=== PATIENT | female | born 1960 | race Caucasian/White ===

== ENCOUNTER 2020-04-28 11:17 | Emergency (ER) | payer SELFPAY ==
[2020-04-28 11:32] VITALS: O2SAT 100
[2020-04-28] MEDS ORDERED: Hydromorphone 1 mg/ml Injection IV ONE (12:03)
[2020-04-28] MEDS ORDERED: Sodium Chloride 0.9% 1000 ML 1,000 ML IV STA (12:03)
[2020-04-28] MEDS ORDERED: Zofran 4 MG/2 ML VIAL IV ONE (12:03)
--- NOTE | 2020-04-28 12:11 | ERPHSYRPT ---
- History of Present Illness Time Seen by Provider: 04/28/20 11:50 Historian: patient Exam Limitations: no limitations Patient Subjective Stated Complaint: PT states "It started yesterday, it was just under the breastbone and i felt like a hunger pain, now it is my whole a bdomen and around to my back." Triage Nursing Assessment: Pt presented alert and oriented X 3, skin pwd Pt ambulates with an upright steady gait, able to speak in clear full sentences. PT in no apparent respiratory distress. Physician History: This is a 60-year-old white female who has had no prior abdominal surgeries and presents with 2-day history of abdominal pain and associated nausea vomiting. The pain began yesterday evening in the epigastric area. Since then it has now localized in the periumbilical region, left side with radiation around to her left flank. She ate [employer] yesterday for lunch and has not eaten since that time. She had some nausea and vomiting this morning. The pain level is approximately 8 out of 10 and it is sharp and stabbing. Timing/Duration: yesterday Activities at Onset: none Quality: sharpness, stabbing Abdominal Pain Onset Location: epigastric, periumbilical Pain Radiation: periumbilical, back (Around to the back on the left side) Severity of Pain-Max: moderate Severity of Pain-Current: moderate Modifying Factors: Improves With: vomiting Associated Symptoms: nausea, vomiting Previous symptoms: no prior history Allergies/Adverse Reactions: Penicillins Allergy (Intermediate, Verified 04/28/20 11:32) Rash Hx Tetanus, Diphtheria Vaccination/Date Given: No Hx Influenza Vaccination/Date Given: No Hx Pneumococcal Vaccination/Date Given: No Immunizations Up to Date: Yes Travel Risk - International Travel Have you traveled outside of the country in past 3 weeks: No - Coronavirus Screening Are you exhibiting any of the following symptoms?: No Close contact with a COVID-19 positive Pt in past 14-21 Days: No - Review of Systems Constitutional: No Symptoms Eyes: No Symptoms Ears, Nose, & Throat: No Symptoms Respiratory: No Symptoms Cardiac: No Symptoms Abdominal/Gastrointestinal: Abdominal Pain, Nausea, Vomiting Genitourinary Symptoms: No Symptoms Musculoskeletal: No Symptoms Skin: No Symptoms Neurological: No Symptoms Psychological: No Symptoms Endocrine: No Symptoms Hematologic/Lymphatic: No Symptoms Immunological/Allergic: No Symptoms All Other Systems: Reviewed and Negative - Past Medical History Pertinent Past Medical History: No Neurological History: No Pertinent History ENT History: No Pertinent History Cardiac History: No Pertinent History Respiratory History: No Pertinent History Endocrine Medical History: No Pertinent History Musculoskeletal History: No Pertinent History GI Medical History: No Pertinent History History: No Pertinent History Psycho-Social History: No Pertinent History Female Reproductive Disorders: No Pertinent History - Past Surgical History Past Surgical History: Yes Neuro Surgical History: No Pertinent History Cardiac: No Pertinent History Respiratory: No Pertinent History Gastrointestinal: No Pertinent History Genitourinary: No Pertinent History Musculoskeletal: No Pertinent History Other Surgical History: c section X 2. left wrist. right ovary - Social History Smoking Status: Former smoker Exposure to second hand smoke: No Drug Use: none Patient Lives Alone: No - Female History Hx Now: No - Nursing Vital Signs Nursing Vital Signs: Initial Vital Signs Temperature 98.5 F 04/28/20 11:22 Pulse Rate 95 H 04/28/20 11:22 Respiratory Rate 20 04/28/20 11:22 Blood Pressure 134/72 04/28/20 11:22 O2 Sat by Pulse Oximetry 100 04/28/20 11:22 Pain Scale Pain Intensity 9 - Physical Exam General Appearance: no apparent distress, alert, anxiety Eye Exam: PERRL/EOMI, eyes nml inspection Ears, Nose, Throat Exam: normal ENT inspection, moist mucous membranes Neck Exam: normal inspection, non-tender, supple, full range of motion Respiratory Exam: normal breath sounds, lungs clear, airway intact, No chest tenderness, No respiratory distress Cardiovascular Exam: regular rate/rhythm, normal heart sounds, normal peripheral pulses Gastrointestinal/Abdomen Exam: soft, normal bowel sounds, tenderness, guarding (To the left of periumbilical region), No mass, No pulsatile mass, No rebound Pelvic Exam: not done Rectal Exam: not done Back Exam: normal inspection, normal range of motion, No CVA tenderness, No vertebral tenderness Extremity Exam: normal inspection, normal range of motion, pelvis stable Neurologic Exam: alert, oriented x 3, cooperative, linen attendant II-XII nml as tested, normal mood/affect, nml cerebellar function, nml station & gait, sensation nml Skin Exam: normal color, warm, dry Lymphatic Exam: No adenopathy SpO2 Interpretation: normal SpO2: 100 O2 Delivery: Room Air - Course Nursing assessment & vital signs reviewed: Yes EKG Interpreted by Me: RATE ([id number]), Sinus Rhythm, NORMAL AXIS, NORMAL INTERVALS, NORMAL QRS, NORMAL ST-T, Other (No comparison EKG. There is no evidence of acute ischemic changes.) Ordered Tests: Active Orders 24 hr Category Date Time Status EKG-ER Only STAT Care 04/28/20 12:03 Active IV Insertion STAT Care 04/28/20 12:03 Active ABDOMEN AND PELVIS W/0 CONTRAS [CT] Stat Exams 04/28/20 12:04 Taken AMYLASE Stat Lab 04/28/20 11:45 Completed CBC W DIFF Stat Lab 04/28/20 11:45 Completed CMP Stat Lab 04/28/20 11:45 Completed LIPASE Stat Lab 04/28/20 11:45 Completed Lactic Acid Stat Lab 04/28/20 12:03 Ordered TROPONIN Q3H Lab 04/28/20 11:45 Completed TROPONIN Q3H Lab 04/28/20 15:15 Ordered TROPONIN Q3H Lab 04/28/20 18:15 Ordered TROPONIN Q3H Lab 04/28/20 21:15 Ordered TROPONIN Q3H Lab 04/29/20 00:15 Ordered UA W/RFX UR CULTURE Stat Lab 04/28/20 11:45 Completed Medication Summary Generic Name Dose Route Start Last Admin Trade Name Freq PRN Reason Stop Dose Admin Sodium Chloride 1,000 mls @ 999 mls/hr 04/28/20 12:03 04/28/20 12:22 Sodium Chloride 0.9% 1000 Ml IV 04/28/20 13:03 999 mls/hr .Q1H1M STA Administration Discontinued Medications Generic Name Dose Route Start Last Admin Trade Name Freq PRN Reason Stop Dose Admin Hydromorphone HCl 1 mg 04/28/20 12:03 04/28/20 12:26 Hydromorphone 1 Mg/Ml Injection IV 04/28/20 12:04 1 mg STAT ONE Administration Hydromorphone HCl Confirm 04/28/20 12:19 Hydromorphone 1 Mg/Ml Injection Administered 04/28/20 12:20 Dose 1 mg .ROUTE .STK-MED ONE Sodium Chloride Confirm 04/28/20 12:19 Sodium Chloride 0.9% 1000 Ml Administered 04/28/20 12:20 Dose 1,000 mls @ ud .ROUTE .STK-MED ONE Ondansetron HCl 4 mg 04/28/20 12:03 04/28/20 12:24 Zofran 4 Mg/2 Ml Vial IV 04/28/20 12:04 4 mg STAT ONE Administration Ondansetron HCl Confirm 04/28/20 12:18 Zofran 4 Mg/2 Ml Vial Administered 04/28/20 12:19 Dose 4 mg .ROUTE .STK-MED ONE Lab/Rad Data: Laboratory Result Diagrams 04/28/20 11:45 04/28/20 11:45 Laboratory Results 04/28/20 04/28/20 04/28/20 Range/Units 11:45 11:45 11:45 WBC (4.0-10.5) K/mm3 RBC (4.1-5.4) M/mm3 Hgb (12.0-16.0) gm/dl Hct (35-47) % MCV (78-100) fl MCH (26-32) pg MCHC (32-36) g/dl RDW (11.5-14.0) % Plt Count (150-450) K/mm3 MPV (7.5-11.0) fl Gran % (36.0-66.0) % Eos # (Auto) (0-0.5) Absolute Lymphs (auto) (1.0-4.6) Absolute Monos (auto) (0.0-1.3) Lymphocytes % (24.0-44.0) % Monocytes % (0.0-12.0) % Eosinophils % (0.00-5.0) % Basophils % (0.0-0.4) % Absolute Granulocytes (1.4-6.9) Basophils # (0-0.4) Sodium 139 (137-145) mmol/L Potassium 4.0 (3.5-5.1) mmol/L Chloride 100 (98-107) mmol/L Carbon Dioxide 28 (22-30) mmol/L Anion Gap 14.7 (5-15) MEQ/L BUN 11 (7-17) mg/dL Creatinine 0.58 (0.52-1.04) mg/dL Estimated GFR > 60.0 ML/MIN Glucose 104 (74-106) mg/dL Calcium 9.9 (8.4-10.2) mg/dL Total Bilirubin 0.50 (0.2-1.3) mg/dL AST 33 (14-36) U/L ALT 17 (0-35) U/L Alkaline Phosphatase 72 (38-126) U/L Troponin I < 0.012 (0.000-0.034) ng/mL Serum Total Protein 8.2 (6.3-8.2) g/dL Albumin 4.9 (3.5-5.0) g/dL Amylase 102 (30-110) U/L Lipase 211 (23-300) U/L Urine Color YELLOW (YELLOW) Urine Appearance CLOUDY (CLEAR) Urine pH 7.0 (5-6) Ur Specific [place] 1.018 (1.005-1.025) Urine Protein NEGATIVE (Negative) Urine Ketones TRACE (NEGATIVE) Urine Blood NEGATIVE (0-5) Jeancarlos/ul Urine Nitrite NEGATIVE (NEGATIVE) Urine Bilirubin NEGATIVE (NEGATIVE) Urine Urobilinogen NEGATIVE (0-1) mg/dL Ur Leukocyte Esterase NEGATIVE (NEGATIVE) Urine WBC (Auto) 3-5 (0-5) /HPF Urine RBC (Auto) 0-2 (0-2) /HPF U Epithel Cells (Auto) NONE (FEW) /HPF Urine Bacteria (Auto) NONE (NEGATIVE) /HPF Amorphous Crystals FEW (NEGATIVE) /HPF Urine Mucus (Auto) SLIGHT (NEGATIVE) /HPF Urine Culture Reflexed NO (NO) Urine Glucose NEGATIVE (NEGATIVE) mg/dL 04/28/20 Range/Units 11:45 WBC 17.4 H (4.0-10.5) K/mm3 RBC 4.53 (4.1-5.4) M/mm3 Hgb 14.2 (12.0-16.0) gm/dl Hct 43.2 (35-47) % MCV 95.4 (78-100) fl MCH 31.3 (26-32) pg MCHC 32.9 (32-36) g/dl RDW 12.2 (11.5-14.0) % Plt Count 297 (150-450) K/mm3 MPV 10.9 (7.5-11.0) fl Gran % 86.7 H (36.0-66.0) % Eos # (Auto) 0.06 (0-0.5) Absolute Lymphs (auto) 1.22 (1.0-4.6) Absolute Monos (auto) 1.02 (0.0-1.3) Lymphocytes % 7.0 L (24.0-44.0) % Monocytes % 5.9 (0.0-12.0) % Eosinophils % 0.3 (0.00-5.0) % Basophils % 0.1 (0.0-0.4) % Absolute Granulocytes 15.09 H (1.4-6.9) Basophils # 0.02 (0-0.4) Sodium (137-145) mmol/L Potassium (3.5-5.1) mmol/L Chloride (98-107) mmol/L Carbon Dioxide (22-30) mmol/L Anion Gap (5-15) MEQ/L BUN (7-17) mg/dL Creatinine (0.52-1.04) mg/dL Estimated GFR ML/MIN Glucose (74-106) mg/dL Calcium (8.4-10.2) mg/dL Total Bilirubin (0.2-1.3) mg/dL AST (14-36) U/L ALT (0-35) U/L Alkaline Phosphatase (38-126) U/L Troponin I (0.000-0.034) ng/mL Serum Total Protein (6.3-8.2) g/dL Albumin (3.5-5.0) g/dL Amylase (30-110) U/L Lipase (23-300) U/L Urine Color (YELLOW) Urine Appearance (CLEAR) Urine pH (5-6) Ur Specific [place] (1.005-1.025) Urine Protein (Negative) Urine Ketones (NEGATIVE) Urine Blood (0-5) Jeancarlos/ul Urine Nitrite (NEGATIVE) Urine Bilirubin (NEGATIVE) Urine Urobilinogen (0-1) mg/dL Ur Leukocyte Esterase (NEGATIVE) Urine WBC (Auto) (0-5) /HPF Urine RBC (Auto) (0-2) /HPF U Epithel Cells (Auto) (FEW) /HPF Urine Bacteria (Auto) (NEGATIVE) /HPF Amorphous Crystals (NEGATIVE) /HPF Urine Mucus (Auto) (NEGATIVE) /HPF Urine Culture Reflexed (NO) Urine Glucose (NEGATIVE) mg/dL - Progress Progress: improved, re-examined Progress Note: 04/28/20 12:59 Medical decision making: This patient had epigastric abdominal pain that is localized in the left upper quadrant left periumbilical region with radiation into her back on the left side. Patient did and does not have any right lower quadrant abdominal pain. The CAT scan of her abdomen and pelvis without contrast shows an enlarged appendix but no evidence of inflammatory changes or periappendiceal inflammation. I reviewed the results with the radiologist, Dr. Olivas. Patient has an elevated white count of 17,000. Likely this is secondary to the 3 episodes of vomiting this morning and several episodes of dry heaving. Patient states that she has no pain or nausea at this time. The pain medicine and antiemetic has improved her symptoms tremendously. Clinically, the patient does not have evidence of acute appendicitis. I reexamined her, there is no evidence of any rebound or guarding in the right lower quadrant. I reviewed the results of the CAT scan of her abdomen pelvis with her. I also discussed the rationale of IV hydration, oral rehydration with clear liquids only. Patient states that she feels well at this time and prefers to go home. I did explain to her that if she cannot tolerate clear liquids or her pain recurs, she is to return to the emergency department. I feel it is reasonable to allow her to be discharged to home with instructions to follow-up here if needed. That is her preference. Counseled pt/family regarding: lab results, diagnosis, need for follow-up, rad results - Departure Departure Disposition: Home Clinical Impression: Left sided abdominal pain, Nausea & vomiting Condition: Stable Critical Care Time: No Additional Instructions: Clear liquids only as discussed. Take the medication as prescribed. Return to the emergency department if your symptoms recur. Prescriptions: Ondansetron ODT 4 MG [Zofran Odt 4 mg] 4 mg PO Q6H PRN PRN #10 tab.rapdis PRN Reason: Vomiting Hydrocodone/APAP 5/325 [[place] 5/325 mg] 1 each PO Q8H PRN PRN #6 tablet MDD 3 PRN Reason: Pain
[2020-04-28 12:13] LABS: Absolute Neutrophil Ct (ANC) 15.09 (1.4-6.9); BASOPHIL % 0.1 % (0.0-0.4); Basophil (Absolute #) 0.02 (0-0.4); Eosinophil % 0.3 % (0.00-5.0); Eosinophil (Absolute #) 0.06 (0-0.5); Hematocrit 43.2 % (35-47); Hemoglobin 14.2 gm/dl (12.0-16.0); Lymphocyte (Absolute #) 1.22 (1.0-4.6); Mean Cell Volume 95.4 fl (78-100); Mean Corpuscular Hemoglobin 31.3 pg (26-32); Mean Corpuscular Hgb Concent. 32.9 g/dl (32-36); Mean Platelet Volume 10.9 fl (7.5-11.0); Monocyte (Absolute #) 1.02 (0.0-1.3); Monocytes % 5.9 % (0.0-12.0); Neutrophil % 86.7 % (36.0-66.0); Platelet Count 297 K/mm3 (150-450); Red Blood Count 4.53 M/mm3 (4.1-5.4); Red Cell Distribution Width 12.2 % (11.5-14.0); White Blood Count 17.4 K/mm3 (4.0-10.5)
[2020-04-28 12:17] LABS: ALBUMIN 4.9 g/dL (3.5-5.0); ALKALINE PHOSPHATASE 72 U/L (38-126); AMYLASE 102 U/L (30-110); ANION GAP 14.7 MEQ/L (5-15); BLOOD UREA NITROGEN 11 mg/dL (7-17); CHLORIDE 100 mmol/L (98-107); Calcium 9.9 mg/dL (8.4-10.2); Carbon Dioxide 28 mmol/L (22-30); Creatinine 1 0.58 mg/dL (0.52-1.04); EST GLOMERULAR FILTRATION RATE > 60.0 ML/MIN; Glucose 104 mg/dL (74-106); LIPASE 211 U/L (23-300); SGOT/AST 33 U/L (14-36); SGPT/ALT 17 U/L (0-35); SODIUM 139 mmol/L (137-145); Total Protein 8.2 g/dL (6.3-8.2)
[2020-04-28] MEDS ORDERED: Zofran 4 MG/2 ML VIAL ONE (12:18)
[2020-04-28] MEDS ORDERED: Sodium Chloride 0.9% 1000 ML 1,000 ML ONE (12:19)
[2020-04-28] MEDS ORDERED: Hydromorphone 1 mg/ml Injection ONE (12:19)
[2020-04-28 12:22] LABS: Amourphous Crystal FEW /HPF (NEGATIVE); Appearance CLOUDY (CLEAR); Bilirubin NEGATIVE (NEGATIVE); Blood NEGATIVE Ery/ul (0-5); Glucose NEGATIVE (NEGATIVE); Ketones TRACE (NEGATIVE); Leukocyte Esterase NEGATIVE (NEGATIVE); Mucus SLIGHT /HPF (NEGATIVE); Nitrite NEGATIVE (NEGATIVE); Protein,Urine Dip NEGATIVE (Negative); RBC 0-2 /HPF (0-2); Specific Gravity 1.018 (1.005-1.025); Urobilinogen NEGATIVE mg/dL (0-1)
[2020-04-28 13:18] VITALS: BP 139/65; PULSE 82
--- NOTE | 2020-04-28 18:17 | XRAY ---
Indication: Abdomen pain, nausea, and vomiting 24 hours. Multiple contiguous axial images obtained through the abdomen and pelvis without contrast as ordered. Comparison: None Lung bases are clear. Heart is not enlarged. Partially visualized bilateral breast implants. Noncontrast stomach and bowel loops appear nonobstructed. Prominent retrocecal appendix up to 12 mm without obvious periappendiceal stranding. Mild/early appendicitis is not completely excluded. No free fluid/air. Remaining liver, gallbladder, pancreas, spleen, adrenal glands, kidneys, ureters, bladder, and aorta appear unremarkable for noncontrast exam. Osseous structures intact with mild lower lumbar degenerative changes greatest at lumbosacral junction. Impression: 1. Prominent appendix. Rule out mild/early appendicitis. 2. Remaining CT abdomen/pelvis without contrast exam is negative. Comment: Preliminary interpretation was made by [facility]. No critical discrepancy.
== END 2020-04-28 13:31 | disposition home or self-care (01) ==
LOC: ED 11:17
DX: R10.12 Left upper quadrant pain (principal); R11.2 Nausea with vomiting, unspecified
CPT/HCPCS: 36000; 36415; 74176; 80053; 81001; 82150; 83605; 83690; 84484; 85025; 93005; 96374; 96375; 99284; J1170; J2405

== ENCOUNTER 2020-04-29 15:45 | Observation (INO) | payer SELFPAY ==
[2020-04-29] MEDS ORDERED: ROCEPHIN 1 Gm-D5w 50 ml Bag** 1 G/50 ML IVPB IV STA (16:06)
[2020-04-29] MEDS ORDERED: MORPHINE SULFATE 4 MG INJ IV ONE ×2 (16:06→17:04)
[2020-04-29] MEDS ORDERED: Sodium Chloride 0.9% 1000 ML 1,000 ML IV STA (16:06)
[2020-04-29] MEDS ORDERED: Zofran 4 MG/2 ML VIAL ONE ×2 (16:10→18:31)
[2020-04-29] MEDS ORDERED: Zofran 4 MG/2 ML VIAL IV ONE (16:11)
[2020-04-29] MEDS ORDERED: MORPHINE SULFATE 4 MG INJ ONE ×2 (16:11→16:19)
[2020-04-29] MEDS ORDERED: Sodium Chloride 0.9% 1000 ML 1,000 ML ONE (16:11)
--- NOTE | 2020-04-29 16:13 | ERPHSYRPT ---
- History of Present Illness Time Seen by Provider: 04/29/20 16:09 Historian: patient Exam Limitations: no limitations Patient Subjective Stated Complaint: Abdominal pain Triage Nursing Assessment: Patient ambulated back to ED doubled over in pain. Patient transferred self to bed. Patient A+O X3. Patient's skin pink, warm and dry. Patient complains of right lower abdominal pain that radiates down right leg constant sharp pain 8/10 that started Thursday afternoon. Patient was seen in ER yesterday and was instructed to come back if pain got worse. Patient's abdomen soft and round with BS X 4. Patient states the pain is worse than yesterday. Rebound tenderness noted to RUQ. Patient denies N/V or diarrhea. Physician History: Patient complains of right lower abdominal pain that radiates down right leg constant sharp pain 8/10 that started Thursday afternoon. Patient was seen in ER yesterday and was instructed to come back if pain got worse. Patient's abdomen soft and round with BS X 4. Patient states the pain is worse than yesterday. Patient was in the emergency room yesterday and CT abdomen was done which did show prominent appendix even though it did not show any rupture or swelling. All other laboratory data were negative. Patient was advised that if pain get worse come back to the emergency room. Today in the morning she started having pain again in the epigastric area and then radiated to the umbilicus and then radiate to her right inguinal area. She denies any nausea vomiting but complaining of some loss of appetite. Timing/Duration: yesterday Quality: burning Abdominal Pain Onset Location: RLQ Pain Radiation: groin Severity of Pain-Max: moderate Severity of Pain-Current: moderate Modifying Factors: Improves With: nothing Associated Symptoms: denies symptoms Allergies/Adverse Reactions: Penicillins Allergy (Intermediate, Verified 04/29/20 15:53) Rash Hx Tetanus, Diphtheria Vaccination/Date Given: No Hx Influenza Vaccination/Date Given: No Hx Pneumococcal Vaccination/Date Given: No Immunizations Up to Date: Yes Travel Risk - International Travel Have you traveled outside of the country in past 3 weeks: No - Coronavirus Screening Are you exhibiting any of the following symptoms?: No Close contact with a COVID-19 positive Pt in past 14-21 Days: No - Review of Systems Constitutional: No Fever, No Chills Eyes: No Symptoms Ears, Nose, & Throat: No Symptoms Respiratory: No Cough, No Dyspnea Cardiac: No Chest Pain, No Edema, No Syncope Abdominal/Gastrointestinal: Abdominal Pain, No Nausea, No Vomiting, No Diarrhea Genitourinary Symptoms: No Dysuria Musculoskeletal: No Back Pain, No Neck Pain Skin: No Rash Neurological: No Dizziness, No Focal Weakness, No Sensory Changes Psychological: No Symptoms Endocrine: No Symptoms All Other Systems: Reviewed and Negative - Past Medical History Pertinent Past Medical History: No Neurological History: No Pertinent History ENT History: No Pertinent History Cardiac History: No Pertinent History Respiratory History: No Pertinent History Endocrine Medical History: No Pertinent History Musculoskeletal History: No Pertinent History GI Medical History: No Pertinent History History: No Pertinent History Psycho-Social History: No Pertinent History Female Reproductive Disorders: No Pertinent History - Past Surgical History Past Surgical History: Yes Neuro Surgical History: No Pertinent History Cardiac: No Pertinent History Respiratory: No Pertinent History Gastrointestinal: No Pertinent History Genitourinary: No Pertinent History Musculoskeletal: No Pertinent History Other Surgical History: c section X 2. left wrist. right ovary - Social History Smoking Status: Former smoker Exposure to second hand smoke: No Drug Use: none Patient Lives Alone: No - Female History Hx Now: No - Nursing Vital Signs Nursing Vital Signs: Initial Vital Signs Temperature 100.6 F 04/29/20 15:54 Pulse Rate 88 04/29/20 15:54 Respiratory Rate 18 04/29/20 15:54 Blood Pressure 135/72 04/29/20 15:54 O2 Sat by Pulse Oximetry 100 04/29/20 15:54 Pain Scale Pain Intensity 10 - Physical Exam General Appearance: no apparent distress, alert Eye Exam: PERRL/EOMI, eyes nml inspection Ears, Nose, Throat Exam: normal ENT inspection, pharynx normal, moist mucous membranes Neck Exam: normal inspection, non-tender, supple, full range of motion Respiratory Exam: normal breath sounds, lungs clear, No respiratory distress Cardiovascular Exam: regular rate/rhythm, normal heart sounds Gastrointestinal/Abdomen Exam: soft, tenderness (RLQ area, ), rebound (right lower quadrant area), No mass Back Exam: normal inspection, normal range of motion, No CVA tenderness, No vertebral tenderness Extremity Exam: normal inspection, normal range of motion, pelvis stable Neurologic Exam: alert, oriented x 3, cooperative, normal mood/affect, nml cerebellar function, sensation nml, No motor deficits Skin Exam: normal color, warm, dry SpO2: 100 - Course Nursing assessment & vital signs reviewed: Yes Ordered Tests: Active Orders 24 hr Category Date Time Status NPO (ED) STAT Care 04/29/20 16:06 Active AMYLASE Stat Lab 04/29/20 16:00 Received CBC W DIFF Stat Lab 04/29/20 16:00 Received CMP Stat Lab 04/29/20 16:00 Received LIPASE Stat Lab 04/29/20 16:00 Received Medication Summary Generic Name Dose Route Start Last Admin Trade Name Freq PRN Reason Stop Dose Admin Sodium Chloride 1,000 mls @ 999 mls/hr 04/29/20 16:06 04/29/20 16:13 Sodium Chloride 0.9% 1000 Ml IV 04/29/20 17:06 999 mls/hr .Q1H1M STA Administration Ceftriaxone Sodium/Dextrose 1 g in 50 mls @ 100 mls/hr 04/29/20 16:06 Rocephin 1 Gm-D5w 50 Ml Bag IV 04/29/20 16:35 STAT STA Discontinued Medications Generic Name Dose Route Start Last Admin Trade Name Freq PRN Reason Stop Dose Admin Fentanyl Citrate 50 mcg 04/29/20 16:19 Sublimaze 100 Mcg/2 Ml IV 04/29/20 16:20 STAT ONE Sodium Chloride Confirm 04/29/20 16:11 Sodium Chloride 0.9% 1000 Ml Administered 04/29/20 16:12 Dose 1,000 mls @ ud .ROUTE .STK-MED ONE Morphine Sulfate 4 mg 04/29/20 16:06 04/29/20 16:13 Morphine Sulfate 4 Mg Inj IV 04/29/20 16:07 4 mg STAT ONE Administration Morphine Sulfate Confirm 04/29/20 16:11 Morphine Sulfate 4 Mg Inj Administered 04/29/20 16:12 Dose 4 mg .ROUTE .STK-MED ONE Morphine Sulfate Confirm 04/29/20 16:19 Morphine Sulfate 4 Mg Inj Administered 04/29/20 16:20 Dose 4 mg .ROUTE .STK-MED ONE Ondansetron HCl 4 mg 04/29/20 16:11 04/29/20 16:13 Zofran 4 Mg/2 Ml Vial IV 04/29/20 16:12 4 mg STAT ONE Administration Ondansetron HCl Confirm 04/29/20 16:10 Zofran 4 Mg/2 Ml Vial Administered 04/29/20 16:11 Dose 4 mg .ROUTE .STK-MED ONE - Progress Progress: unchanged Progress Note: 04/29/20 16:14 CT/ABDOMEN AND PELVIS W/0 CONTRAS Indication: Abdomen pain, nausea, and vomiting 24 hours. Multiple contiguous axial images obtained through the abdomen and pelvis without contrast as ordered. Comparison: None Lung bases are clear. Heart is not enlarged. Partially visualized bilateral breast implants. Noncontrast stomach and bowel loops appear nonobstructed. Prominent retrocecal appendix up to 12 mm without obvious periappendiceal stranding. Mild/early appendicitis is not completely excluded. No free fluid/air. Remaining liver, gallbladder, pancreas, spleen, adrenal glands, kidneys, ureters, bladder, and aorta appear unremarkable for noncontrast exam. Osseous structures intact with mild lower lumbar degenerative changes greatest at lumbosacral junction. Impression: 1. Prominent appendix. Rule out mild/early appendicitis. 2. Remaining CT abdomen/pelvis without contrast exam is negative. Discussed with : Yovanny Will see patient in: hospital (observation) Counseled pt/family regarding: diagnosis - Departure Departure Disposition: Observation Clinical Impression: Appendicitis Qualifiers: Appendicitis type: acute appendicitis Acute appendicitis type: with localized peritonitis Appendicitis gangrene presence: without gangrene Appendicitis perforation presence: without perforation Appendicitis abscess presence: unspecified whether abscess present Qualified Code(s): K35.30 - Acute appendicitis with localized peritonitis, without perforation or gangrene Condition: Fair Critical Care Time: Yes Critical Care Time(excluding separately billable procedures): Critical 30-74 mins Referrals: ERIKA URIOSTEGUI MD [Primary Care Provider] -
[2020-04-29] MEDS ORDERED: SUBLIMAZE 100 MCG/2 ML IV ONE (16:19)
[2020-04-29] MEDS ORDERED: FLAGYL 500 MG IVPB 500 MG/100 ML BAG IV STA (16:20)
[2020-04-29 16:23] LABS: Absolute Neutrophil Ct (ANC) 13.65 (1.4-6.9); BASOPHIL % 0.1 % (0.0-0.4); Basophil (Absolute #) 0.02 (0-0.4); Eosinophil % 0.2 % (0.00-5.0); Eosinophil (Absolute #) 0.04 (0-0.5); Hematocrit 40.2 % (35-47); Hemoglobin 13.1 gm/dl (12.0-16.0); Lymphocyte (Absolute #) 1.75 (1.0-4.6); Lymphocytes % 10.4 % (24.0-44.0); Mean Cell Volume 97.1 fl (78-100); Mean Corpuscular Hemoglobin 31.6 pg (26-32); Mean Corpuscular Hgb Concent. 32.6 g/dl (32-36); Mean Platelet Volume 10.5 fl (7.5-11.0); Monocyte (Absolute #) 1.38 (0.0-1.3); Monocytes % 8.2 % (0.0-12.0); Neutrophil % 81.1 % (36.0-66.0); Platelet Count 256 K/mm3 (150-450); Red Blood Count 4.14 M/mm3 (4.1-5.4); Red Cell Distribution Width 12.3 % (11.5-14.0); White Blood Count 16.8 K/mm3 (4.0-10.5)
[2020-04-29] MEDS ORDERED: SUBLIMAZE 100 MCG/2 ML ONE ×3 (16:33→18:57)
[2020-04-29] MEDS ORDERED: ROCEPHIN 1 Gm-D5w 50 ml Bag** 1 G/50 ML IVPB IV ONE (16:33)
[2020-04-29] MEDS ORDERED: FLAGYL 500 MG IVPB 500 MG/100 ML BAG IV ONE (16:34)
[2020-04-29 16:35] LABS: ALBUMIN 4.3 g/dL (3.5-5.0); ALKALINE PHOSPHATASE 62 U/L (38-126); AMYLASE 73 U/L (30-110); ANION GAP 11.3 MEQ/L (5-15); BLOOD UREA NITROGEN 7 mg/dL (7-17); CHLORIDE 96 mmol/L (98-107); Calcium 9.1 mg/dL (8.4-10.2); Carbon Dioxide 29 mmol/L (22-30); Creatinine 1 0.62 mg/dL (0.52-1.04); EST GLOMERULAR FILTRATION RATE > 60.0 ML/MIN; Glucose 124 mg/dL (74-106); LIPASE 107 U/L (23-300); Potassium 3.7 mmol/L (3.5-5.1); SGOT/AST 26 U/L (14-36); SGPT/ALT 15 U/L (0-35); SODIUM 133 mmol/L (137-145); Total Protein 7.4 g/dL (6.3-8.2)
[2020-04-29] MEDS ORDERED: Lactated Ringers 1,000 ML IV ONE ×2 (16:46→17:17)
[2020-04-29] MEDS ORDERED: Lactated Ringers 1,000 ML IV SCH (17:00)
[2020-04-29] MEDS ORDERED: Sensorcaine 0.25% 10 ML ONE (17:17)
[2020-04-29] MEDS ORDERED: SUBLIMAZE 250 MCG/5 ML ONE (17:22)
[2020-04-29] MEDS ORDERED: Quelicin Fliptop 200 MG/10 ML ONE (17:22)
[2020-04-29] MEDS ORDERED: Zemuron 100 MG/10 ML ONE (17:22)
[2020-04-29] MEDS ORDERED: DIPRIVAN 200 MG/20 ML IV ONE (17:22)
[2020-04-29] MEDS ORDERED: Versed 2 MG/2 ML Injection ONE (17:22)
[2020-04-29] MEDS ORDERED: Xylocaine-Mpf 2% 5 Ml Vial ONE (17:23)
[2020-04-29] MEDS ORDERED: MORPHINE SULFATE 4 MG INJ IV PRN (17:37)
[2020-04-29] MEDS ORDERED: Sodium Chloride 0.9% 1000 ML 1,000 ML IV SCH (17:37)
[2020-04-29] MEDS ORDERED: TORAdol 30 mg Injection ONE (18:31)
[2020-04-29] MEDS ORDERED: BRIDION 200MG/2ML IV ONE (18:35)
[2020-04-29] MEDS ORDERED: NORCO 5/325 MG PO PRN (19:43)
[2020-04-29] MEDS ORDERED: ZOFRAN ODT 4 MG PO PRN (19:44)
[2020-04-29] MEDS ORDERED: Zofran 4 MG/2 ML VIAL IVIM PRN (19:52)
[2020-04-29] MEDS ORDERED: Hydromorphone 1 mg/ml Injection IV PRN (19:54)
[2020-04-29] MEDS ORDERED: TYLENOL 325 MG PO PRN (19:55)
[2020-04-29] MEDS: MEFOXIN 2 GM PREMIX** 2 GM/50 ML ML IV SCH (23:47)
[2020-04-30] MEDS: NORCO 5/325 MG PO PRN ×5 (03:30→22:01)
[2020-04-30] MEDS ORDERED: Lactated Ringers 1,000 ML IV SCH (05:00)
[2020-04-30 05:16] LABS: Absolute Neutrophil Ct (ANC) 12.59 (1.4-6.9); BASOPHIL % 0.1 % (0.0-0.4); Basophil (Absolute #) 0.02 (0-0.4); Eosinophil % 0.1 % (0.00-5.0); Eosinophil (Absolute #) 0.01 (0-0.5); Hematocrit 34.8 % (35-47); Hemoglobin 10.9 gm/dl (12.0-16.0); Lymphocyte (Absolute #) 1.08 (1.0-4.6); Lymphocytes % 7.4 % (24.0-44.0); Mean Cell Volume 101.5 fl (78-100); Mean Corpuscular Hemoglobin 31.8 pg (26-32); Mean Corpuscular Hgb Concent. 31.3 g/dl (32-36); Mean Platelet Volume 11.3 fl (7.5-11.0); Monocyte (Absolute #) 0.91 (0.0-1.3); Monocytes % 6.2 % (0.0-12.0); Neutrophil % 86.2 % (36.0-66.0); Platelet Count 181 K/mm3 (150-450); Red Blood Count 3.43 M/mm3 (4.1-5.4); Red Cell Distribution Width 12.6 % (11.5-14.0); White Blood Count 14.6 K/mm3 (4.0-10.5)
[2020-04-30 05:36] LABS: ALBUMIN 3.1 g/dL (3.5-5.0); ALKALINE PHOSPHATASE 35 U/L (38-126); ANION GAP 9.9 MEQ/L (5-15); BLOOD UREA NITROGEN 7 mg/dL (7-17); CHLORIDE 101 mmol/L (98-107); Calcium 7.7 mg/dL (8.4-10.2); Carbon Dioxide 24 mmol/L (22-30); Creatinine 1 0.52 mg/dL (0.52-1.04); EST GLOMERULAR FILTRATION RATE > 60.0 ML/MIN; Glucose 119 mg/dL (74-106); Potassium 3.6 mmol/L (3.5-5.1); SGOT/AST 15 U/L (14-36); SGPT/ALT 11 U/L (0-35); SODIUM 132 mmol/L (137-145); Total Protein 5.6 g/dL (6.3-8.2)
[2020-04-30] MEDS: MEFOXIN 2 GM PREMIX** 2 GM/50 ML ML IV SCH ×4 (05:49→23:49)
[2020-04-30] MEDS ORDERED: FEVERALL 650 MG RC PRN (06:32)
--- NOTE | 2020-04-30 14:38 | OP ---
SURGERY DATE/TIME: 04/29/2020 1755 PREOPERATIVE DIAGNOSIS: Acute appendicitis. POSTOPERATIVE DIAGNOSIS: Acute perforated appendicitis. PROCEDURE: Laparoscopic appendectomy. SURGEON: Kade Valenzuela M.D. ANESTHESIA: General. ESTIMATED BLOOD LOSS: Less than 10 cc. COMPLICATIONS: None. SPECIMEN: Appendix. FINDINGS: Acute perforated appendicitis. INDICATION: This patient presents with periumbilical pain that later localized to the right lower quadrant. She had CT scan with initial CT scan read yesterday as no acute process. However, that was the preliminary read and on final read it did suggest maybe early appendicitis. The patient had already been sent home from the emergency room yesterday. She represents to the emergency room today with worsening pain. After discussing risks, benefits of laparoscopic possible open appendectomy the patient wished to proceed. DESCRIPTION OF PROCEDURE: The patient was brought to the operating room, placed supine on operating table, placed under general anesthesia. The abdomen was prepped and draped in sterile fashion. Left arm was tucked. Veress needle inserted left upper quadrant. Pneumoperitoneum obtained. A 5 mm optical trocar inserted under direct visualization and the abdomen was entered and entry was inspected. There did not appear to be any inadvertent injury. There were adhesions to a prior lower midline laparotomy. These were taken down with LigaSure that were just omental adhesions. The patient is placed in Trendelenburg position and rolled to the left. The appendix was stuck to the right side wall and it was freed up and it was perforated. There was a small amount of stool spillage which was suctioned out. There was purulent fluid in the pelvis that was suctioned out. There did not appear to be any peritonitis in the rest of the abdomen, this was localized to the pelvis. The appendix was then lifted up. A window was created in between the base of the appendix and the mesoappendix. The mesoappendix transected with the LigaSure. The appendix was transected from its juncture with the cecum with a 45 EndoGIA white load stapler. The appendix was removed with the bag. The field was irrigated and suctioned dry. The field was hemostatic and quite clean appearing. The 12 mm trocar site was closed with 0 Vicryl suture with suture passer under direct visualization. The abdomen was desufflated. The wound injected with 0.25% Marcaine. Wounds closed with 4-0 Monocryl sutures. Steri-Strips and dressings were applied. The patient was recovered and taken to PACU in stable condition.
--- NOTE | 2020-04-30 14:48 | HP ---
CHIEF COMPLAINT: Abdominal pain. HISTORY OF PRESENT ILLNESS: This patient presents with right lower quadrant abdominal pain. She had periumbilical pain that started on Thursday. On Thursday it got worse, she had some nausea and vomiting. She went to the emergency room yesterday. Initial preliminary read was negative on her CT scan yesterday and she was discharged home with instructions to come back if pain worsened. The pain worsened today and she represented. Final reading of her CT from Thursday suggested early appendicitis. She has pain localized to right lower quadrant now. She denies chest pain or shortness of breath. PAST MEDICAL HISTORY: None. PAST SURGICAL HISTORY: Tonsils. Adenoids. x2. Left ovary. MEDICATIONS: None. ALLERGIES: PENICILLIN. SOCIAL HISTORY: No tobacco. FAMILY HISTORY: No IBD. PHYSICAL EXAMINATION: GENERAL: No acute distress. HEENT: Sclera nonicteric. Extraocular movements intact. NECK: Supple. No JVD. CHEST: Nonlabored breathing. ABDOMEN: Soft, focally tender in the right lower quadrant with involuntary guarding. ASSESSMENT: Acute appendicitis. PLAN: Laparoscopic appendectomy possible open. Risks and benefits discussed in depth with the patient and the patient would like to proceed.
[2020-05-01] MEDS: NORCO 5/325 MG PO PRN ×3 (02:38→10:57)
[2020-05-01 05:11] LABS: Absolute Neutrophil Ct (ANC) 8.98 (1.4-6.9); BASOPHIL % 0.1 % (0.0-0.4); Basophil (Absolute #) 0.01 (0-0.4); Eosinophil % 2.6 % (0.00-5.0); Eosinophil (Absolute #) 0.28 (0-0.5); Hematocrit 33.5 % (35-47); Hemoglobin 10.4 gm/dl (12.0-16.0); Lymphocyte (Absolute #) 0.92 (1.0-4.6); Lymphocytes % 8.4 % (24.0-44.0); Mean Cell Volume 100.3 fl (78-100); Mean Corpuscular Hemoglobin 31.1 pg (26-32); Mean Platelet Volume 10.7 fl (7.5-11.0); Monocyte (Absolute #) 0.73 (0.0-1.3); Monocytes % 6.7 % (0.0-12.0); Neutrophil % 82.2 % (36.0-66.0); Platelet Count 184 K/mm3 (150-450); Red Blood Count 3.34 M/mm3 (4.1-5.4); Red Cell Distribution Width 12.5 % (11.5-14.0); White Blood Count 10.9 K/mm3 (4.0-10.5)
[2020-05-01] MEDS: MEFOXIN 2 GM PREMIX** 2 GM/50 ML ML IV SCH ×2 (05:45→12:55)
[2020-05-01 07:38] VITALS: BP 126/58
[2020-05-01 11:34] VITALS: PULSE 85; O2SAT 99
== END 2020-05-01 13:58 | disposition home or self-care (01) ==
LOC: ED 15:45 → INTOOBSV 17:25 → MED SURG 17:25
PROVIDERS: ADMIT Surgery; ATTEND Surgery
DX: K35.32 Acute appendicitis with perforation, localized peritonitis, and gangrene, without abscess (principal); R11.2 Nausea with vomiting, unspecified
CPT/HCPCS: 36000; 36415; 44970; 80053; 82150; 83690; 85025; 96365; 96374; 96375; 96376; 99284; 99291; G0378; U0003; 88304; 99140; J0330; J0694; J0696; J1885; J2250; J2270; J2405; J2704; J3010; Q0162; A9270-GY